=== PATIENT | female | born 1975 | race African-American/Black ===

== ENCOUNTER 2023-10-20 10:20 | Inpatient (IN) | payer OTHER ==
[2023-10-20] MEDS ORDERED: ACETAMINOPHEN INJECTION 100 ML IVPB ONE (12:42)
[2023-10-20 12:58] LABS: BASO % 0.4 % (0-2.0); EOS % 0.1 % (0-4.5); HEMOGLOBIN 12.2 GM/dL (10.7-15.3); LYMPH % 12.4 % (8-40); MCH 28.7 pg (25.7-33.7); MCHC 33.8 g/dl (32.0-36.0); MEAN CELL VOLUME 84.8 fl (80-96); MEAN PLT VOLUME 8.1 fl (7.5-11.1); NEUT % 82.1 % (42.8-82.8); PLATELET COUNT 351 10^3/uL (134-434); RBC 4.24 M/mm3 (3.60-5.2); WHITE BLOOD COUNT 16.4 K/mm3 (4.0-10.0)
[2023-10-20] MEDS: ACETAMINOPHEN 1000 MG/100 ML BAG IVPB ONE (13:03)
[2023-10-20 13:07] LABS: INR 1.13 (0.83-1.09); PROTHROMBIN TIME (PATIENT) 13.1 SEC (9.7-13.0)
[2023-10-20 13:10] LABS: ACTIVATED PTT 28.9 SECONDS (25.2-36.5)
[2023-10-20 13:30] LABS: POTASSIUM 3.6 mmol/L (3.5-5.1)
[2023-10-20 13:32] LABS: CALCIUM 9.3 mg/dL (8.5-10.1)
[2023-10-20 13:33] LABS: ALBUMIN 3.7 g/dl (3.4-5.0)
[2023-10-20 13:36] LABS: CREATININE 0.9 mg/dL (0.55-1.3)
[2023-10-20 13:37] LABS: BILIRUBIN,TOTAL 0.8 mg/dL (0.2-1)
[2023-10-20 13:38] LABS: TOT PROT 7.6 g/dl (6.4-8.2)
[2023-10-20] MEDS: CLINDAMYCIN HCL 150 MG CAPSULE (FP) PO ONE (14:25)
[2023-10-20] MEDS ORDERED: morphine SULFATE 4 MG/ML VIAL ONE (14:32)
[2023-10-20] MEDS: morphine CARPU-JECT 4 MG/1 ML DISP.SYRIN IVPUSH ONE (14:36)
[2023-10-20] MEDS: CLINDAMYCIN IVPB 300 MG in DEXTROSE 5%-WATER - 48 ML IVPB ONE (15:22)
[2023-10-20] MEDS ORDERED: ALBUTEROL SO4 HFA INHALER IH PRN (16:23)
[2023-10-20] MEDS ORDERED: ALBUTEROL SO4 0.083% IH SOL 2.5 MG/3 ML VIAL.NEB. NEB PRN (16:23)
[2023-10-20] MEDS ORDERED: VANCOMYCIN HCL 1,500 MG in DEXTROSE 5%-WATER - 250 ML IVPB SCH (16:30)
[2023-10-20] MEDS: LACTATED RINGERS SOLUTION 1,000 ML IV SCH (16:54)
[2023-10-20] MEDS ORDERED: ceFAZolin SODIUM 1 GM VIAL ONE (17:13)
[2023-10-20] MEDS ORDERED: IBUPROFEN 400 MG TABLET (FP) PO ONE (17:13)
[2023-10-20] MEDS: IBUPROFEN 800 MG/8 ML IJ IVPB SCH (17:31)
[2023-10-20] MEDS: CEFAZOLIN 1 GM in DEXTROSE 5%-WATER - 50 ML IVPB SCH (17:31)
[2023-10-20] MEDS ORDERED: VANCOMYCIN/WATER 1250 MG 1,250 MG/250 ML BAG IVPB ONE (19:07)
[2023-10-20] MEDS: morphine SULFATE 4 MG/ML VIAL IVPUSH PRN (19:13)
[2023-10-20] MEDS: VANCOMYCIN PREMIX 1.5 GM 1,500 MG/300 ML BAG IVPB SCH (19:13)
[2023-10-20] MEDS ORDERED: MONTELUKAST NA 10 MG TABLET ONE (22:19)
[2023-10-20] MEDS: MONTELUKAST NA 10 MG TABLET PO SCH (22:21)
[2023-10-20] MEDS: AMMONIUM LACTATE 12% LOTION 225 GM BOTTLE TP SCH (22:22)
[2023-10-20] MEDS: FLUTICASONE/SALMETEROL (WIXELA) 100 MCG/50 MCG DISKUS IH SCH (22:22)
[2023-10-21] MEDS ORDERED: IBUPROFEN 800 MG/8 ML IJ IVPB ONE ×2 (00:12→08:35)
[2023-10-21] MEDS ORDERED: ceFAZolin SODIUM 1 GM VIAL ONE ×2 (02:09→10:02)
[2023-10-21 07:44] LABS: POTASSIUM 3.6 mmol/L (3.5-5.1)
[2023-10-21 07:45] LABS: BASO % 0.5 % (0-2.0); EOS % 0.6 % (0-4.5); HEMOGLOBIN 10.3 GM/dL (10.7-15.3); LYMPH % 27.4 % (8-40); MCH 29.5 pg (25.7-33.7); MCHC 34.2 g/dl (32.0-36.0); MEAN CELL VOLUME 86.2 fl (80-96); MEAN PLT VOLUME 8.7 fl (7.5-11.1); MONO % 12.2 % (3.8-10.2); NEUT % 59.3 % (42.8-82.8); PLATELET COUNT 268 10^3/uL (134-434); RBC 3.48 M/mm3 (3.60-5.2); RDW 14.5 % (11.6-15.6); WHITE BLOOD COUNT 8.8 K/mm3 (4.0-10.0)
[2023-10-21 07:51] LABS: MAGNESIUM 2.2 mg/dL (1.8-2.4)
[2023-10-21 07:54] LABS: CREATININE 0.7 mg/dL (0.55-1.3); PHOSPHOROUS 4.6 mg/dL (2.5-4.9)
[2023-10-21 07:55] LABS: BILIRUBIN,TOTAL 0.3 mg/dL (0.2-1); TOT PROT 6.3 g/dl (6.4-8.2)
[2023-10-21] MEDS ORDERED: UMECLIDINIUM/VILANTEROL (ANORO) 62.5/25 MCG INHALER IH SCH (10:00)
[2023-10-21] MEDS ORDERED: DOCUSATE SODIUM 100 MG CAPSULE (FP) PO ONE (10:19)
[2023-10-21] MEDS: ENOXAPARIN NA (PORCINE) 40 MG/0.4 ML DISP.SYRIN SQ SCH (10:26)
[2023-10-21] MEDS: ANASTROZOLE 1 MG TABLET PO SCH (10:26)
[2023-10-21] MEDS: LORATADINE 10 MG TABLET PO SCH (10:26)
[2023-10-21] MEDS: DOCUSATE SODIUM 100 MG CAPSULE (FP) PO SCH (10:26)
[2023-10-21] MEDS: PANTOPRAZOLE 40 MG TABLET PO SCH (10:27)
[2023-10-21] MEDS: FLUTICASONE PROP 0.05% 16 GM NASAL SPRAY NS SCH (13:38)
[2023-10-21 14:13] VITALS: RESP 18
[2023-10-21] MEDS: morphine SULFATE 4 MG/ML VIAL IVPUSH PRN (14:45)
[2023-10-21] MEDS: AMPICILLIN NA/SULBACTAM NA 3 GM in SODIUM CHLORIDE 100 ML IVPB SCH (17:13)
[2023-10-21 18:09] VITALS: BMI 31.6
[2023-10-21] MEDS ORDERED: FLUTICASONE/SALMETEROL (WIXELA) 100 MCG/50 MCG DISKUS IH SCH (22:00)
[2023-10-22] MEDS: UMECLIDINIUM/VILANTEROL (ANORO) 62.5/25 MCG INHALER IH SCH (10:06)
[2023-10-22] MEDS: FLUTICASONE/SALMETEROL (WIXELA) 100 MCG/50 MCG DISKUS IH SCH (10:30)
[2023-10-22 11:08] LABS: BASO % 0.6 % (0-2.0); EOS % 0.5 % (0-4.5); HEMATOCRIT 31.6 % (32.4-45.2); HEMOGLOBIN 10.6 GM/dL (10.7-15.3); LYMPH % 38.4 % (8-40); MCH 28.6 pg (25.7-33.7); MCHC 33.5 g/dl (32.0-36.0); MEAN CELL VOLUME 85.3 fl (80-96); MEAN PLT VOLUME 8.5 fl (7.5-11.1); MONO % 11.9 % (3.8-10.2); NEUT % 48.6 % (42.8-82.8); PLATELET COUNT 303 10^3/uL (134-434); RBC 3.71 M/mm3 (3.60-5.2); RDW 14.3 % (11.6-15.6); WHITE BLOOD COUNT 6.8 K/mm3 (4.0-10.0)
[2023-10-22 11:23] LABS: BLOOD UREA NITROGEN 9.2 mg/dL (7-18); CALCIUM 9.2 mg/dL (8.5-10.1)
[2023-10-22 11:26] LABS: CREATININE 0.7 mg/dL (0.55-1.3)
[2023-10-22 11:28] LABS: BILIRUBIN,TOTAL 0.6 mg/dL (0.2-1); TOT PROT 6.3 g/dl (6.4-8.2)
[2023-10-23 11:07] LABS: BASO % 0.5 % (0-2.0); EOS % 0.7 % (0-4.5); HEMATOCRIT 31.3 % (32.4-45.2); HEMOGLOBIN 10.7 GM/dL (10.7-15.3); LYMPH % 44.7 % (8-40); MCH 29.1 pg (25.7-33.7); MCHC 34.3 g/dl (32.0-36.0); MEAN PLT VOLUME 8.9 fl (7.5-11.1); MONO % 8.6 % (3.8-10.2); NEUT % 45.5 % (42.8-82.8); PLATELET COUNT 341 10^3/uL (134-434); RBC 3.68 M/mm3 (3.60-5.2); RDW 14.4 % (11.6-15.6); WHITE BLOOD COUNT 6.4 K/mm3 (4.0-10.0)
[2023-10-23 11:35] LABS: BLOOD UREA NITROGEN 12.7 mg/dL (7-18); CALCIUM 8.6 mg/dL (8.5-10.1)
[2023-10-23 11:39] LABS: CREATININE 0.9 mg/dL (0.55-1.3)
[2023-10-24] MEDS ORDERED: IBUPROFEN 600 MG TABLET (FP) PO PRN (09:45)
[2023-10-24 10:01] LABS: BASO % 0.8 % (0-2.0); EOS % 0.4 % (0-4.5); HEMATOCRIT 33.2 % (32.4-45.2); HEMOGLOBIN 11.3 GM/dL (10.7-15.3); LYMPH % 37.4 % (8-40); MCH 29.1 pg (25.7-33.7); MEAN CELL VOLUME 85.6 fl (80-96); MONO % 6.6 % (3.8-10.2); NEUT % 54.8 % (42.8-82.8); PLATELET COUNT 339 10^3/uL (134-434); RBC 3.88 M/mm3 (3.60-5.2); RDW 14.2 % (11.6-15.6)
[2023-10-24] MEDS: IBUPROFEN 600 MG TABLET (FP) PO PRN (10:20)
[2023-10-24 10:44] LABS: POTASSIUM 4.1 mmol/L (3.5-5.1)
[2023-10-24 10:55] LABS: CREATININE 0.8 mg/dL (0.55-1.3)
[2023-10-24 10:56] LABS: BILIRUBIN,TOTAL 0.2 mg/dL (0.2-1); TOT PROT 6.9 g/dl (6.4-8.2)
[2023-10-24 10:59] LABS: CALCIUM 9.7 mg/dL (8.5-10.1)
[2023-10-24 11:00] LABS: ALBUMIN 3.2 g/dl (3.4-5.0); BLOOD UREA NITROGEN 9.5 mg/dL (7-18)
[2023-10-24] MEDS: FLU VACCINE (FLULAVAL) PF 60 MCG/0.5 ML SYRINGE 2023-2024 IM ONE (12:09)
[2023-10-25] MEDS: AMPICILLIN NA/SULBACTAM NA 3 GM in SODIUM CHLORIDE 100 ML IVPB SCH (02:00)
[2023-10-25 06:33] VITALS: PULSE 81
[2023-10-25] MEDS: AMOX TR/POT CLAV 875MG/125MG TABLETS (FP) PO SCH (09:20)
[2023-10-25 10:22] LABS: BASO % 0.8 % (0-2.0); EOS % 0.9 % (0-4.5); HEMATOCRIT 31.3 % (32.4-45.2); HEMOGLOBIN 10.8 GM/dL (10.7-15.3); LYMPH % 29.9 % (8-40); MCH 29.4 pg (25.7-33.7); MCHC 34.3 g/dl (32.0-36.0); MEAN CELL VOLUME 85.7 fl (80-96); MEAN PLT VOLUME 8.4 fl (7.5-11.1); MONO % 6.9 % (3.8-10.2); NEUT % 61.5 % (42.8-82.8); PLATELET COUNT 321 10^3/uL (134-434); RBC 3.66 M/mm3 (3.60-5.2); RDW 14.7 % (11.6-15.6); WHITE BLOOD COUNT 6.9 K/mm3 (4.0-10.0)
[2023-10-25 10:37] LABS: POTASSIUM 4.1 mmol/L (3.5-5.1)
[2023-10-25 10:40] LABS: ALBUMIN 2.9 g/dl (3.4-5.0); BLOOD UREA NITROGEN 10.6 mg/dL (7-18); CALCIUM 8.4 mg/dL (8.5-10.1)
[2023-10-25 10:43] LABS: CREATININE 0.8 mg/dL (0.55-1.3)
[2023-10-25 10:45] LABS: BILIRUBIN,TOTAL 0.3 mg/dL (0.2-1); TOT PROT 6.2 g/dl (6.4-8.2)
[2023-10-25 12:46] VITALS: BP 119/77; TEMP 98.4
== END 2023-10-25 14:38 | disposition home or self-care (01) | DRG 872 ==
LOC: JER 10:20 → JERBED 14:34 → J5S 10-21 12:23
PROVIDERS: ADMIT Internal Medicine; ATTEND Internal Medicine
DX: A41.89 Other specified sepsis (principal); N61.0 Mastitis without abscess; I10 Essential (primary) hypertension; J45.909 Unspecified asthma, uncomplicated; Z85.3 Personal history of malignant neoplasm of breast; D64.9 Anemia, unspecified
CPT/HCPCS: 0241U-QW; 36415; 76641-TC-LT; 80048; 80053; 83735; 84100; 85025; 85610; 85730; 87040; 87081; 90686; 93005; 93010; 99285-25; G0008; J0131

== ENCOUNTER 2025-01-29 10:13 | Emergency (ER) | payer OTHER ==
[2025-01-29 10:30] VITALS: BP 96/62; PULSE 76; RESP 18; TEMP 98.6; BMI 27.8
[2025-01-29] MEDS ORDERED: IBUPROFEN 400 MG TABLET (FP) PO ONE (11:40)
[2025-01-29] MEDS: IBUPROFEN 400 MG TABLET (FP) PO ONE (11:41)
[2025-01-29] MEDS: MAG HYDROX/ALH/SMC/DPHA/LIDO 240 ML MOUTHWASH MM ONE (12:04)
== END 2025-01-29 12:17 | disposition home or self-care (01) ==
LOC: JERFT 10:13 → JER 10:13 → JERFT 12:17
DX: J02.9 Acute pharyngitis, unspecified (principal); R05.9 Cough, unspecified; R09.81 Nasal congestion
CPT/HCPCS: 0241U-QW; 87651; 99283-25